=== PATIENT | female | born 1945 | race Two or more races ===

== ENCOUNTER → 2022-08-30 | Outpatient (CLI) | payer MEDICARE | END | disposition home or self-care (01) | LOC: LABMN 13:24 | PROVIDERS: ATTEND Internal Medicine Nephrology | DX: I12.9 Hypertensive chronic kidney disease with stage 1 through stage 4 chronic kidney disease, or unspecified chronic kidney disease (principal); N18.31 Chronic kidney disease, stage 3a; R73.03 Prediabetes; M19.90 Unspecified osteoarthritis, unspecified site; R82.81 Pyuria | CPT/HCPCS: 89050 ==